=== PATIENT | female | born 1965 | race Caucasian/White ===

== ENCOUNTER 2017-06-14 07:06 | Day surgery (SDC) | payer OTHER ==
[~2017-06-14 07:06] MED LIST: CEFAZOLIN 1 GM INJ; CEFAZOLIN 2 GM/50 ML (PMX) 50 ML IVPB; SOD CHLORIDE 0.9% 1,000 ML IV
[2017-06-14] MEDS ORDERED: PROPOFOL 20 ML (09:20)
[2017-06-14] MEDS ORDERED: MIDAZOLAM 1 MG/ML 2 ML INJ (09:20)
[2017-06-14] MEDS ORDERED: ROCURONIUM 50 MG INJ (09:20)
[2017-06-14] MEDS ORDERED: ROPIVACAINE 0.2% 20 ML VIAL (09:21)
[2017-06-14] MEDS ORDERED: POLYMYXIN/BACITRACIN 1L IRRIG (09:58)
[2017-06-14] MEDS: BUPIVACAINE 0.25% (MPF) 30 ML INJ (10:00)
[2017-06-14] MEDS ORDERED: ACETAMINOPHEN 1000MG/100ML IV 100 ML (10:01)
[2017-06-14] MEDS ORDERED: METOCLOPRAMIDE 10 MG INJ (10:01)
[2017-06-14] MEDS ORDERED: ONDANSETRON 4 MG INJ (10:01)
[2017-06-14] MEDS ORDERED: SUGAMMADEX SODIUM 200 MG/2 ML VIAL IV (10:02)
[2017-06-14] MEDS ORDERED: DEXAMETHASONE 4 MG/ML 1 ML INJ (10:02)
[2017-06-14] MEDS ORDERED: KETOROLAC 30 MG INJ (10:02)
[2017-06-14] MEDS ORDERED: METOCLOPRAMIDE 10 MG INJ IV (10:30)
[2017-06-14] MEDS ORDERED: ONDANSETRON 4 MG INJ IV (10:30)
[2017-06-14] MEDS ORDERED: EPHEDrine SULFATE 50 MG/5 ML SYG IV (10:30)
[2017-06-14] MEDS ORDERED: DIPHENHYDRAMINE 50 MG INJ IV (10:30)
[2017-06-14] MEDS ORDERED: FENTAnyl 50 MCG/ML VIAL IV ×3 (10:30)
[2017-06-14] MEDS ORDERED: OXYCODONE/ACETAMINOPHEN (5/325) TAB PO (10:30)
[2017-06-14] MEDS ORDERED: HYDROCODONE/APAP (5/325) TAB PO (10:30)
[2017-06-14] MEDS ORDERED: HYDROmorphONE (0.2 MG/ML) 10ML SYG IV ×2 (10:30)
[2017-06-14] MEDS: MEPERIDINE 25 MG INJ IV (10:42)
[2017-06-14] MEDS: HYDROmorphONE (0.2 MG/ML) 10ML SYG IV (11:05)
== END 2017-06-14 11:40 | disposition home or self-care (01) ==
LOC: SDS 07:06
DX: K43.0 Incisional hernia with obstruction, without gangrene (principal)
CPT/HCPCS: 49657